=== PATIENT | female | born 1990 | race Caucasian/White ===

== ENCOUNTER → 2016-11-05 | Outpatient (CLI) | payer OTHER ==
[~2016-11-05] MED LIST: ACET500C; CEFT250T; EXCEDRINE MIGRAINE; HYDR25TA8; METO10TA2; MOTR200T4; NORTREL; PRED10TA2
--- NOTE | 2016-11-05 13:22 | REP ---
MRI study of the right shoulder without contrast: History: Pain in the right shoulder, question rotator cuff tear. Comparison right shoulder radiographs are from September 27, 2016. Technique: Axial, oblique coronal, oblique sagittal projection images are acquired. T1 and T2-weighted scans were obtained with and without fat saturation. MRI findings: Glenohumeral and acromioclavicular joints are normally aligned. There is swelling and increased signal intensity diffusely in the distal supraspinatus tendon consistent with tendonitis tendinosis change. There is a sliver of subacromial subdeltoid bursal fluid on T2-weighted scans. No focal supraspinatus cuff tear is seen. Infraspinatus, subscapularis, and biceps tendons have an intact appearance. No anterior or posterior labral abnormality is seen. The superior labral cartilage appears intact as well. No juxtaarticular cyst or mass is seen. Impression: Tendonitis tendinosis change in the supraspinatus tendon. A small sliver of fluid in the subacromial subdeltoid bursa may reflect bursitis. Otherwise negative. Signed by Guero Judge MD 11/05/2016 01:44 P
== END | disposition home or self-care (01) ==
LOC: M RAD 10:32
PROVIDERS: ATTEND Orthopaedic Surgery
DX: M75.91 Shoulder lesion, unspecified, right shoulder (principal)

== ENCOUNTER 2016-11-12 08:30 | Outpatient (RCR) | payer OTHER | END 2016-11-13 | LOC: M PT 08:30 | PROVIDERS: ATTEND Orthopaedic Surgery | DX: Z51.89 Encounter for other specified aftercare (principal); M25.511 Pain in right shoulder ==

== ENCOUNTER 2016-12-10 16:00 | Outpatient (RCR) | payer OTHER | END 2016-12-11 | LOC: M PT 16:00 | PROVIDERS: ATTEND Orthopaedic Surgery | DX: Z51.89 Encounter for other specified aftercare (principal); M25.511 Pain in right shoulder ==

== ENCOUNTER 2017-01-08 14:11 | Outpatient (RCR) | payer OTHER | END 2017-01-11 | LOC: M PT 14:11 | PROVIDERS: ATTEND Orthopaedic Surgery | DX: Z51.89 Encounter for other specified aftercare (principal); M25.511 Pain in right shoulder ==

== ENCOUNTER 2017-01-16 15:30 | Outpatient (RCR) | payer OTHER | END 2017-02-10 | LOC: M PT 15:30 | PROVIDERS: ATTEND Orthopaedic Surgery | DX: Z51.89 Encounter for other specified aftercare (principal); M65.811 Other synovitis and tenosynovitis, right shoulder; M54.2 Cervicalgia; M25.511 Pain in right shoulder ==

== ENCOUNTER 2017-03-12 16:00 | Outpatient (RCR) | payer OTHER | END 2017-03-13 | LOC: M PT 16:00 | PROVIDERS: ATTEND Orthopaedic Surgery | DX: Z51.89 Encounter for other specified aftercare (principal); M65.811 Other synovitis and tenosynovitis, right shoulder; G95.0 Syringomyelia and syringobulbia; M25.511 Pain in right shoulder ==

== ENCOUNTER 2017-03-28 12:59 | Outpatient (RCR) | payer OTHER | END 2017-04-12 | LOC: M PT 12:59 | PROVIDERS: ATTEND Orthopaedic Surgery | DX: Z51.89 Encounter for other specified aftercare (principal); M65.811 Other synovitis and tenosynovitis, right shoulder; G95.0 Syringomyelia and syringobulbia; M25.511 Pain in right shoulder ==

== ENCOUNTER 2017-06-12 12:15 | Outpatient (RCR) | payer OTHER | END 2017-06-13 | LOC: M PT 12:15 | PROVIDERS: ATTEND Orthopaedic Surgery | DX: Z51.89 Encounter for other specified aftercare (principal); M25.511 Pain in right shoulder | CPT/HCPCS: 97110; 97140; G0283 ==

== ENCOUNTER 2017-06-20 12:15 | Outpatient (RCR) | payer OTHER | END 2017-07-13 | LOC: M PT 12:15 | PROVIDERS: ATTEND Orthopaedic Surgery | DX: Z51.89 Encounter for other specified aftercare (principal); M79.1 Myalgia; M65.221 Calcific tendinitis, right upper arm | CPT/HCPCS: 97140; G0283 ==

== ENCOUNTER 2017-08-08 16:00 | Outpatient (RCR) | payer OTHER | END 2017-08-13 | LOC: M PT 16:00 | PROVIDERS: ATTEND Physical Medicine & Rehabilitation | DX: Z51.89 Encounter for other specified aftercare (principal); M25.511 Pain in right shoulder ==

== ENCOUNTER 2017-08-27 16:00 | Outpatient (RCR) | payer OTHER | END 2017-09-12 | LOC: M PT 16:00 | PROVIDERS: ATTEND Physical Medicine & Rehabilitation | DX: M25.511 Pain in right shoulder (principal); M79.1 Myalgia | CPT/HCPCS: 97032; 97140; G0283 ==

== ENCOUNTER 2017-12-01 09:57 | Emergency (ER) | payer BC, OTHER | END 2017-12-01 12:04 | disposition home or self-care (01) | LOC: M ED 09:57 | DX: M79.661 Pain in right lower leg (principal); G43.909 Migraine, unspecified, not intractable, without status migrainosus; Z79.899 Other long term (current) drug therapy; Z91.040 Latex allergy status | CPT/HCPCS: 93971 ==

== ENCOUNTER → 2017-12-26 | Outpatient (CLI) | payer BC | LOC: M WHC 11:03 | DX: R10.2 Pelvic and perineal pain (principal); N94.6 Dysmenorrhea, unspecified ==

== ENCOUNTER → 2018-01-28 | Outpatient (CLI) | payer BC ==
[~2018-01-28] MED LIST changes: -ACET500C; +BUPIVACAINE HCL 0.5% 10 ML VIAL As Ordered; -CEFT250T; +CONRAY-43 43% 50ML VIAL (Q9960) As Ordered; -EXCEDRINE MIGRAINE; -HYDR25TA8; +LIDOCAINE 1% MDV 20ML VIAL As Ordered; -METO10TA2; -MOTR200T4; -NORTREL; -PRED10TA2; +TRIAMCINOLONE ACETONIDE SUSP 40 MG/ML VIAL (J3301) As Ordered
== END ==
LOC: M RADPRO 09:08
DX: S43.431A Superior glenoid labrum lesion of right shoulder, initial encounter (principal); X58.XXXA Exposure to other specified factors, initial encounter; Y92.89 Other specified places as the place of occurrence of the external cause; Y93.89 Activity, other specified; Y99.8 Other external cause status
CPT/HCPCS: 23350

== ENCOUNTER → 2018-05-23 | Outpatient (CLI) | payer BC ==
[2018-05-25 15:29] LABS: TISSUE TRANSGLUTAMINASE IgA <2 U/mL (0-3)
== END ==
LOC: M WUC 13:24
DX: K58.1 Irritable bowel syndrome with constipation (principal)
CPT/HCPCS: 84443

== ENCOUNTER 2018-07-31 10:15 | Day surgery (SDC) | payer BC ==
[~2018-07-31 10:15] MED LIST changes: -BUPIVACAINE HCL 0.5% 10 ML VIAL As Ordered; -CONRAY-43 43% 50ML VIAL (Q9960) As Ordered; -LIDOCAINE 1% MDV 20ML VIAL As Ordered; +LIDOCAINE 2% INJ 100 MG/5 ML SDV (FOR ANES.) As Ordered; +PROPOFOL 200 MG/20 ML VIAL As Ordered; -TRIAMCINOLONE ACETONIDE SUSP 40 MG/ML VIAL (J3301) As Ordered
[2018-07-31] MEDS: NS 1,000 ML IV (11:00)
[2018-07-31] MEDS ORDERED: PROPOFOL 200 MG/20 ML VIAL As Ordered (11:46)
== END 2018-07-31 12:31 | disposition home or self-care (01) ==
LOC: M OPP 10:15
DX: R10.84 Generalized abdominal pain (principal); K58.1 Irritable bowel syndrome with constipation; K64.8 Other hemorrhoids; K63.89 Other specified diseases of intestine; R00.8 Other abnormalities of heart beat; K21.9 Gastro-esophageal reflux disease without esophagitis; R12 Heartburn; F41.9 Anxiety disorder, unspecified; F32.9 Major depressive disorder, single episode, unspecified; G47.00 Insomnia, unspecified; G43.909 Migraine, unspecified, not intractable, without status migrainosus; J45.909 Unspecified asthma, uncomplicated; Z88.5 Allergy status to narcotic agent; Z91.040 Latex allergy status; Z79.899 Other long term (current) drug therapy; Z80.0 Family history of malignant neoplasm of digestive organs; Z80.42 Family history of malignant neoplasm of prostate
CPT/HCPCS: 45378

== ENCOUNTER 2018-08-21 07:47 | Outpatient (RCR) | payer OTHER | END 2018-09-12 | LOC: M PT 07:47 | DX: M75.01 Adhesive capsulitis of right shoulder (principal) ==

== ENCOUNTER → 2018-10-01 | Outpatient (CLI) | payer BC ==
[~2018-10-01] MED LIST changes: +ACET500C; +CEFT250T; +DICY1CAP8 PO; +EXCEDRINE MIGRAINE; +EXCETAB80 PO; +GABA-845 PO; +HYDR25TA8; -LIDOCAINE 2% INJ 100 MG/5 ML SDV (FOR ANES.) As Ordered; +LINZ290C PO; +MAXA10TA14 PO; +METO10TA2; +MOTR200T4; +NORTREL; +PRED10TA2; -PROPOFOL 200 MG/20 ML VIAL As Ordered; +ZONI100C2 PO
[2018-10-01 18:00] LABS: ALBUMIN 3.8 GM/DL (3.2-5.2); ALT/SGPT 18 U/L (12-78); BASO # 0.1 10^3/uL (0.0-0.2); BILIRUBIN,TOTAL 0.4 MG/DL (0.2-1.0); BLOOD UREA NITROGEN 10 MG/DL (7-18); CALCIUM LEVEL 8.7 MG/DL (8.5-10.1); CARBON DIOXIDE LEVEL 26 MEQ/L (21-32); CHLORIDE LEVEL 108 MEQ/L (98-107); CHOLESTEROL LEVEL 177 MG/DL (<200); CHOLESTEROL RISK RATIO 3.105 (<5); CREATININE FOR GFR 0.77 MG/DL (0.55-1.30); EOS # 0.1 10^3/uL (0.0-0.50); EOS % 1.5 % (0.0-3.0); FREE T4 0.93 NG/DL (0.76-1.46); GLOMERULAR FILTRATION RATE > 60.0 (>60); GLUCOSE, FASTING 92 MG/DL (70-100); HDL CHOLESTEROL 57 MG/DL (>40); HEMATOCRIT 39.5 % (36.0-47.0); HEMOGLOBIN 13.1 g/dl (12.0-15.5); LDL CHOLESTEROL 102 MG/DL (<100); LYMPH # 2.1 10^3/uL (1.5-6.5); MEAN CORPUSCULAR HEMOGLOBIN 29.7 pg (27.0-33.0); MEAN CORPUSCULAR HGB CONC 33.2 g/dl (32.0-36.5); MEAN CORPUSCULAR VOLUME 89.6 fl (80.0-96.0); MONO # 0.4 10^3/uL (0.0-0.8); MONO % 5.3 % (0.0-5.0); NEUTROPHILS # 4.7 10^3/uL (1.8-7.7); NEUTROPHILS % 64.1 % (36.0-66.0); NON-HDL-C 120 MG/DL; PLATELET COUNT, AUTOMATED 370 10^3/uL (150-450); POTASSIUM SERUM 4.4 MEQ/L (3.5-5.1); RED BLOOD COUNT 4.41 10^6/uL (4.00-5.40); SODIUM LEVEL 142 MEQ/L (136-145); TOTAL PROTEIN 7.3 GM/DL (6.4-8.2); TRIGLYCERIDES LEVEL 89 MG/DL (<150); WHITE BLOOD COUNT 7.4 10^3/uL (4.0-10.0)
[2018-10-01 18:03] LABS: TOTAL 25(OH) VITAMIN D 19.7 NG/ML (30.0-100.0)
== END ==
LOC: M WUC 12:16
PROVIDERS: ATTEND Physician Assistant
DX: E78.00 Pure hypercholesterolemia, unspecified (principal); F33.1 Major depressive disorder, recurrent, moderate; G43.009 Migraine without aura, not intractable, without status migrainosus

== ENCOUNTER → 2018-10-10 | Outpatient (REF) | payer BC | LOC: M SFHCWAGY 14:59 | PROVIDERS: ATTEND Family Medicine | DX: Z12.4 Encounter for screening for malignant neoplasm of cervix (principal) ==

== ENCOUNTER 2019-02-04 15:23 | Outpatient (RCR) | payer OTHER, BC | END 2019-02-10 | LOC: M PT 15:23 | PROVIDERS: ATTEND Orthopaedic Surgery | DX: G25.89 Other specified extrapyramidal and movement disorders (principal) ==

== ENCOUNTER 2019-03-12 16:00 | Outpatient (RCR) | payer OTHER, BC | END 2019-03-13 | LOC: M PT 16:00 | PROVIDERS: ATTEND Orthopaedic Surgery | DX: G25.89 Other specified extrapyramidal and movement disorders (principal) ==

== ENCOUNTER → 2023-01-10 | Outpatient (CLI) | payer OTHER ==
[~2023-01-10] MED LIST changes: +GABA-283 PO; -GABA-845 PO; -MAXA10TA14 PO; +RIZA10TA64 PO; -ZONI100C2 PO; +ZONI100C67 PO
== END ==
LOC: M PLAIMG 14:31
PROVIDERS: ATTEND Orthopaedic Surgery
DX: G25.89 Other specified extrapyramidal and movement disorders (principal)

== ENCOUNTER → 2023-08-20 | Outpatient (CLI) | payer OTHER ==
[~2023-08-20] MED LIST changes: -GABA-283 PO; +GABA-284 PO
== END ==
LOC: M PLAIMG 12:39
PROVIDERS: ATTEND Physical Medicine & Rehabilitation
DX: G24.9 Dystonia, unspecified (principal); M79.18 Myalgia, other site; M79.2 Neuralgia and neuritis, unspecified; M54.2 Cervicalgia

== ENCOUNTER → 2023-11-12 | Outpatient (REF) | payer OTHER | LOC: M LAB REF 17:10 | PROVIDERS: ATTEND Family Medicine | DX: N76.0 Acute vaginitis (principal) ==

== ENCOUNTER → 2024-05-04 | Outpatient (CLI) | payer OTHER | LOC: M WHC 07:04 | PROVIDERS: ATTEND Family Medicine | DX: R10.2 Pelvic and perineal pain (principal) ==